=== PATIENT | male | born 1960 | race Caucasian/White ===

== ENCOUNTER → 2016-09-03 | Outpatient (CLI) | payer OTHER ==
--- NOTE | 2016-09-04 10:20 | CT ---
EXAM DESCRIPTION: CT ABDOMEN AND PELVIS WITHOUT AND WITH CONTRAST CLINICAL HISTORY: MALIGNANT NEOPLASM OF RIGHT KIDNEY COMPARISON: April 03, 2016 TECHNIQUE: CT of the abdomen and pelvis are performed prior to and during IV bolus administration of nonionic contrast. This exam was performed according to our departmental dose-optimization program, which includes automated exposure control, adjustment of the mA and/or kV according to patient size and/or use of iterative reconstruction technique. FINDINGS: The lung bases demonstrate no evidence of metastatic disease. Noncontrast imaging demonstrates surgical absence of the right kidney with a large eventration of the right flank abdominal wall containing right colon and small bowel in a nonobstructive manner. No evidence of tumor mass in the right renal bed is evident. No calculi or obstruction of the remaining left kidney is noted. Fat-containing umbilical hernia is evident. Postcontrast imaging demonstrates a homogeneous appearing liver without metastatic disease with a small normal spleen and normal-appearing gallbladder and ductal system. The unenhanced pancreas is grossly unremarkable. No right or left adrenal abnormalities are noted and this study performed on equilibrium basis demonstrates normal excretion of contrast from the left kidney with no evidence of solid or cystic left renal mass. A single surgical clip along the right psoas margin at the inferior right renal bed is again noted and unchanged. The bladder distends normally and a normal sized prostate with calcification is noted with symmetric seminal vesicles. No retroperitoneal or iliac or inguinal lymphadenopathy is seen. No abdominal or pelvic ascites or fluid collection is noted. IMPRESSION: 1. Large [place] hernia sac or eventration of the right flank in the region of previous right nephrectomy containing mesenteric fat and large and small bowel and unchanged from prior study. 2. Normal-appearing left kidney on noncontrast and delayed equilibrium phase imaging without evidence of mass or obstruction or stone disease 3. No evidence of intra-abdominal or bony metastatic disease. Electronically signed by: Rui Pardo MD 09/04/2016 10:19 AM CDT
== END ==
LOC: CT 07:52
PROVIDERS: ATTEND Urology
DX: C64.1 Malignant neoplasm of right kidney, except renal pelvis (principal)

== ENCOUNTER → 2017-02-08 | Outpatient (CLI) | payer OTHER ==
--- NOTE | 2017-02-08 11:40 | RAD ---
EXAM DESCRIPTION: Pelvis, single view CLINICAL HISTORY: PAIN IN HIP FINDINGS/ IMPRESSION: No fracture or focal osteochondral lesion of the hips. No advanced osteoarthritis Normal mineralization. No lytic or blastic bony lesion Electronically signed by: Rui Parks MD 02/08/2017 11:39 AM CDT
--- NOTE | 2017-02-08 11:41 | RAD ---
EXAM DESCRIPTION: Knee,Left Complete CLINICAL HISTORY: 57 years Male, PAIN COMPARISON: None. FINDINGS: 4 views of the left knee show no acute fracture or malalignment. The joint spaces are fairly well-maintained. No joint effusion is identified. The soft tissues are unremarkable. No focal bone lesion. IMPRESSION: Negative exam. Electronically signed by: Eriberto Walters MD 02/08/2017 11:39 AM CDT
--- NOTE | 2017-02-08 11:41 | RAD ---
EXAM DESCRIPTION: Knee,Right Complete CLINICAL HISTORY: 57 years Male, PAIN COMPARISON: None. FINDINGS: 4 views of the right knee show no acute fracture or malalignment. No right knee joint effusion. No joint space narrowing or focal bone lesion. The soft tissues are unremarkable. IMPRESSION: Negative exam. Electronically signed by: Eriberto Walters MD 02/08/2017 11:40 AM CDT
== END | disposition home or self-care (01) ==
LOC: RAD 07:47
PROVIDERS: ATTEND Orthopaedic Surgery
DX: M25.561 Pain in right knee (principal); M25.552 Pain in left hip

== ENCOUNTER → 2018-05-24 | Outpatient (CLI) | payer OTHER | LOC: LAB.O 07:56 | PROVIDERS: ATTEND Nurse Practitioner Family | DX: Z00.00 Encounter for general adult medical examination without abnormal findings (principal); Z13.220 Encounter for screening for lipoid disorders; N40.0 Benign prostatic hyperplasia without lower urinary tract symptoms ==

== ENCOUNTER → 2018-05-27 | Outpatient (CLI) | payer MEDICARE, OTHER ==
--- NOTE | 2018-05-27 15:11 | CT ---
EXAM DESCRIPTION: Abdomen/Pelvis w/wo Contrast: Computed Tomography. CLINICAL HISTORY: N28.89. OTHER SPECIFIED OF KIDNEY AND URETER COMPARISON: CT scan of the abdomen and pelvis 09/03/2016. TECHNIQUE: Spiral-axial scans at 5 x 5 mm intervals through the abdomen and pelvis before and after standard dose nonionic IV contrast. No oral contrast. Coronal and sagittal 2.0 mm reconstructions. No delayed scans. No adverse reactions. This exam was performed according to our departmental CT dose-optimization program which includes automated exposure control, adjustment of the mA and/or kV according to patient size and/or use of iterative reconstruction technique; to reduce radiation dose to as low as reasonably achievable (ALARA). FINDINGS: Abdominal Wall/Back Soft Tissues: Again noted is right lateral herniation of fatty contents and bowel inferior to the liver including colon and small bowel. Also right lateral migration of the inferior tip of the liver. No strangulated bowel or bowel obstruction. No incarcerated mesentery, fatty stranding, fascial thickening, or abnormal fluid collection or free air. Lung bases and pleura: Negative. Liver, Stomach, Spleen, Adrenal Glands: Minimal right lateral migration of the stomach as well. Otherwise unremarkable and solid organs are negative. Pancreas, Gallbladder, Ducts: Negative. Kidneys and Ureters: Right renal fossa is distorted but no recurrent mass. Left Kidney and ureter unremarkable. Mesentery: Involved in the hernia as described. Stable. No stranding or fascial thickening, no free air or free fluid. Aorta: Mild to moderate atherosclerotic calcification with normal caliber. No para-aortic mass. Small Bowel: Normal caliber. Terminal Ileum/Cecum: Contained in the lateral hernia. Along with the appendix. Normal caliber. Normal fatty density. Colon: Scattered gas and fecal material. Redundant sigmoid also involving the hernia. No complications. Pelvic Organs: Prostate gland is enlarged with heterogeneous density and multiple calcifications. Widest transverse measurements 5.0 x 4.5 cm. Impressing on the base of the urinary bladder with minimal bladder wall thickening. No free fluid. Small pelvic lymph nodes.. Spine and Bony Pelvis: Minimally decreased bone density. IMPRESSION: 1. Large right lateral abdominal wall hernia containing fat, small bowel and cecum, ascending colon, distal and terminal ileum, and part of the sigmoid colon. Also migration of the liver and stomach. Stable with no complications. 2. No abnormal enhancement or recurrent mass in the right renal fossa. 3. Enlarged prostate gland similar size to the prior study. Electronically signed by: Preston Montanez MD 05/27/2018 3:09 PM LAW SECR[employer]ARY
== END ==
LOC: CT 09:26
PROVIDERS: ATTEND Nurse Practitioner Family
DX: N28.89 Other specified disorders of kidney and ureter (principal); K46.9 Unspecified abdominal hernia without obstruction or gangrene